=== PATIENT | male | born 1990 | race American Indian/Alaskan Native ===

== ENCOUNTER 2016-12-24 15:43 | Emergency (ER) | payer SELFPAY ==
[2016-12-24 15:52] VITALS: BP 123/83
[2016-12-24] MEDS ORDERED: NORCO 5/325 PO ONE (17:25)
[2016-12-24] MEDS ORDERED: BOOSTRIX IM ONE (17:25)
[2016-12-24] MEDS ORDERED: KEFLEX PO ONE (17:26)
[2016-12-24] MEDS ORDERED: TRIPLE ANTIBIOTIC TP ONE (17:26)
--- NOTE | 2016-12-24 18:21 | Emergency Department Report ---
ED Extremity Problem HPI - General Chief complaint: Fall Stated complaint: LEFT HAND INJURY Time Seen by Provider: 12/24/16 17:12 Source: patient Mode of arrival: Ambulatory Limitations: No Limitations - History of Present Illness Initial comments: Pt states he was helping his father move a refrigerator last night. PT states lost balance and fell on L hand. PT states his hand hurt and he went to bed. PT states his hand still hurts today. PT denies any cp, sob, dizziness or loc PT has a hx of HIV. PT states his last CD4 count was a few months ago and it was over 700 MD Complaint: extremity pain -: Sudden, days(s), Last night (2199) Location: left, upper extremity (hand ) History of Same: No Severity scale (0 -10): 5 Quality: aching, sharp Consistency: constant Improves with: nothing Worsens with: palpation, other (movement ) Associated Symptoms: denies other symptoms. denies: chest pain, shortness of breath, fever - Related Data Previous Rx's Medication Instructions Recorded Last Taken Type Acetaminophen/Codeine [Tylenol #3] 1 tab PO Q6H PRN #12 tab 12/24/16 Unknown Rx Cephalexin [Keflex] 500 mg PO Q6HR #40 capsule 12/24/16 Unknown Rx Allergies Allergy/AdvReac Type Severity Reaction Status Date / Time No Known Allergies Allergy Verified 12/24/16 15:53 ED Review of Systems ROS: Stated complaint: LEFT HAND INJURY Other details as noted in HPI Comment: All other systems reviewed and negative Constitutional: denies: chills, fever Cardiovascular: denies: chest pain, syncope Gastrointestinal: denies: abdominal pain, nausea, vomiting Musculoskeletal: as per HPI Skin: as per HPI (abrasions to L palm and left shoulder) Neurological: denies: headache, weakness, abnormal gait ED Past Medical Hx - Past Medical History Previous Medical History?: Yes Hx HIV: Yes - Surgical History Past Surgical History?: No - Social History Smoking Status: Current Every Day Smoker Substance Use Type: None - Medications Home Medications: Home Medications Medication Instructions Recorded Confirmed Last Taken Type Acetaminophen/Codeine [Tylenol #3] 1 tab PO Q6H PRN #12 tab 12/24/16 Unknown Rx Cephalexin [Keflex] 500 mg PO Q6HR #40 capsule 12/24/16 Unknown Rx ED Physical Exam - General Limitations: No Limitations General appearance: alert, in no apparent distress, other (thin) - Head Head exam: Present: atraumatic, normocephalic, normal inspection - Eye Eye exam: Present: normal appearance, PERRL, EOMI. Absent: conjunctival injection Pupils: Present: normal accommodation - ENT ENT exam: Present: normal exam, normal external ear exam - Neck Neck exam: Present: normal inspection, full ROM. Absent: tenderness - Respiratory Respiratory exam: Present: normal lung sounds bilaterally. Absent: respiratory distress, chest wall tenderness - Cardiovascular Cardiovascular Exam: Present: regular rate, normal rhythm, normal heart sounds - GI/Abdominal GI/Abdominal exam: Present: soft. Absent: tenderness - Extremities Exam Extremities exam: Present: normal capillary refill - Expanded Upper Extremity Exam Right General: Present: normal inspection Left General: Present: abrasion (to the left palm. ) Shoulder Exam: Present: full ROM, abrasion (small abrasion ant L shoulder ). Absent: tenderness, swelling Upper Arm exam: Present: normal inspection, full ROM Elbow exam: Present: normal inspection, full ROM Forearm Wrist exam: Present: full ROM, other (tattoo to ant L wrist. scatter pustules noted. pt states those are old ). Absent: tenderness Hand Wrist exam: Present: full ROM, tenderness (to left palm ), swelling (to L palm ), abrasion, erythema (localized to abrasion ), other (L palm with quarter sized skin avulsion). Absent: ecchymosis, deformity, dislocation, amputation, nail avulsion, subungual hematoma Neurosensory exam: Present: radial nerve intact, ulnar nerve intact Vascular: Present: radial pulse - Back Exam Back exam: Present: normal inspection, full ROM. Absent: tenderness, CVA tenderness (R), CVA tenderness (L) - Neurological Exam Neurological exam: Present: alert, oriented X3, normal gait - Psychiatric Psychiatric exam: Present: normal affect, normal mood - Skin Skin exam: Present: warm, dry, erythema. Absent: intact ED Course Vital Signs 12/24/16 15:50 Temperature 98.1 F Pulse Rate 78 Respiratory 16 Rate Blood Pressure 123/83 O2 Sat by Pulse 99 Oximetry - Reevaluation(s) Reevaluation #1: 12/24/16 18:57 PT states his hand is feeling better. Pt aware of XR result. PT has no questions at this time. - Pulse Oximetry Interpretation Digit-Finger Initial Pulse Oximetry Readin Actions Taken: none ED Medical Decision Making - Radiology Data Radiology results: report reviewed xr hand - nap - Differential Diagnosis fracture, abrasion Critical Care Time: No Critical care attestation.: If time is entered above; I have spent that time in minutes in the direct care of this critically ill patient, excluding procedure time. ED Disposition Clinical Impression: Need for Tdap vaccination Fall Qualifiers: Encounter type: initial encounter Qualified Code(s): W19.XXXA - Unspecified fall, initial encounter Abrasion of left hand Qualifiers: Encounter type: initial encounter Qualified Code(s): S60.512A - Abrasion of left hand, initial encounter Disposition: TO HOME OR SELFCARE Is pt being admited?: No Does the pt Need Aspirin: No Condition: Stable Instructions: Abrasion (ED), Fall Prevention (ED) Additional Instructions: No driving or ETOH after taking Tylenol #3 Finish all your antibiotics Return to ED if worsening (increase in swelling, redness, fever, drainage) Wash your hand with mild antibacterial soap and pat dry at least twice a day, then apply a thin layer of antibiotic ointment and cover with dressing Prescriptions: Acetaminophen/Codeine [Tylenol #3] 1 tab PO Q6H PRN #12 tab PRN Reason: Pain , Severe (7-10) Cephalexin [Keflex] 500 mg PO Q6HR #40 capsule Referrals: PRIMARY CAREMD [Primary Care Provider] - 3-5 Days JAGDISH MARTINEZ JR, MD [Staff Physician] - 3-5 Days Time of Disposition: 18:59
--- NOTE | 2016-12-24 18:41 | XRay Report ---
FINAL REPORT PROCEDURE: Left hand. TECHNIQUE: Three views. HISTORY: Patient fell, hand pain. COMPARISON: No prior studies are available for comparison. FINDINGS: The bones appear intact without fracture or dislocation. The joint spaces appear normal. The soft tissues are unremarkable. IMPRESSION: Normal study.
== END 2016-12-24 19:23 | disposition home or self-care (01) ==
LOC: ED 15:43
DX: S60.512A Abrasion of left hand, initial encounter (principal); F17.210 Nicotine dependence, cigarettes, uncomplicated; W20.8XXA Other cause of strike by thrown, projected or falling object, initial encounter; Y93.89 Activity, other specified; Y92.89 Other specified places as the place of occurrence of the external cause; Y99.8 Other external cause status
CPT/HCPCS: 90471; 90715; 99283; A6250

== ENCOUNTER 2017-06-26 10:36 | Emergency (ER) | payer OTHER ==
[2017-06-26 10:43] VITALS: BP 138/85
--- NOTE | 2017-06-26 11:20 | Emergency Department Report ---
Chief Complaint: Nausea/Vomiting/Diarrhea Stated Complaint: VOMITING Time Seen by Provider: 06/26/17 11:14 - HPI History of Present Illness: 26-year-old male with a history of HIV is not currently on medication presents to ED complaining of right-sided abdominal pain that started last night. Patient states he's been having vomiting episodes intermittently since 4 AM this morning. He denies [employer]/S shortness of breath as chest pain/watery loose stools. - ROS Review of Systems: As noted in HPI - Exam Vital Signs: Vital Signs 06/26/17 10:40 Temperature 98.5 F Pulse Rate 82 Respiratory 20 Rate Blood Pressure 138/85 O2 Sat by Pulse 99 Oximetry Physical Exam: GENERAL: Alert and oriented x3, mild apparent distress from abd pain, Normal Gait, atraumatic. LUNGS: Symetrical with respiration, HEART: S1, S2 present, regular rate and rhythm ABDOMEN: No organomegaly was noted,Positive bowel sounds, soft, and non- distended. Guarding . Tender to palpation on Right Quadrants, Obturator positive NO CVA tenderness. SKIN: Warm and dry, No lesions, No ulceration or induration present. MSE screening note: Focused history and physical exam performed. Due to findings the following was ordered: ED Medical Decision Making - Medical Decision Making 26-year-old male presents with right lower quadrant pain Labs ordered, CT scan abdomen and pelvis ordered. Patient to be seen by Physicain in ED - Differential Diagnosis 1. Appendicitis 2. Gastroparesis 3. Pyelonephritis 4. kidney stone ED Disposition for MSE Condition: Stable
[2017-06-26 11:42] LABS: Bilirubin,Urine NEG (Negative); Blood,Urine NEG (Negative); Ketones,Urine NEG (Negative); Leukocyte Esterase,Urine NEG (Negative); Mucus,Urine FEW /HPF; Nitrite,Urine NEG (Negative)
[2017-06-26 12:08] LABS: Basophils % (Auto) 0.2 % (0.0-1.8); Eosinophils % (Auto) 1.6 % (0.0-4.3); Hematocrit 42.5 % (35.5-45.6); Hemoglobin 15.1 gm/dl (11.8-15.2); Mean Corpuscular HGB Conc 36 % (32-34); Mean Corpuscular Hemoglobin 33 pg (28-32); Mean Corpuscular Volume 92 fl (84-94); Platelet Count 140 K/mm3 (140-440); Red Cell Distribution Width 12.4 % (13.2-15.2); White Blood Count 4.5 K/mm3 (4.5-11.0)
[2017-06-26 12:19] LABS: Alanine Aminotransferase 27 units/L (7-56); Albumin 4.2 g/dL (3.9-5); Albumin/Globulin Ratio 1.4 %; Alkaline Phosphatase 60 units/L (35-129); Anion Gap 18 mmol/L; BUN/Creatinine Ratio 17; Blood Urea Nitrogen 12 mg/dL (9-20); Calcium 8.5 mg/dL (8.4-10.2); Carbon Dioxide 25 mmol/L (22-30); Chloride 104.7 mmol/L (98-107); Glucose 90 mg/dL (75-100); Lipase 29 units/L (13-60); Potassium 4.2 mmol/L (3.6-5.0); Sodium 143 mmol/L (137-145); Total Protein 7.1 g/dL (6.3-8.2)
== END 2017-06-26 18:00 | disposition left against medical advice (07) ==
LOC: ED 10:36
DX: R11.10 Vomiting, unspecified (principal); Z53.21 Procedure and treatment not carried out due to patient leaving prior to being seen by health care provider
CPT/HCPCS: 36415; 80053; 81001; 83690; 85025